=== PATIENT | female | born 1955 | race African-American/Black ===

== ENCOUNTER 2016-12-10 13:43 | Emergency (ER) | payer BC ==
[~2016-12-10 13:43] MED LIST: ALTA5 PO; AMARYL4 PO; CRESTOR10 PO; GLUCPH PO; HCTZ25B PO; INSNOV7030 SC; INSNOVR SC; K500 PO; LANTUS SC; LIPITOR20 PO; LISINOPRIL40 MG PO; LYRICA75 PO; NEUR300 PO; PREM9 PO; TOUJEO
[2016-12-10 14:14] LABS: BASOPHILS 0.2 %; BASOPHILS ABSOLUTE 0.01 10/3/uL (0.0-0.16); EOSINOPHILS 0.6 %; EOSINOPHILS ABSOLUTE 0.04 10/3/uL (0.0-0.53); HEMOGLOBIN 11.6 g/dL (12.0-16.0); IMMATURE GRANULOCYTES 0.2 %; IMMATURE GRANULOCYTES ABSOLUTE 0.01 10/3/uL (0.0-0.11); LYMPHOCYTES 29.4 %; LYMPHOCYTES ABSOLUTE 1.91 10/3/uL (0.67-4.30); MANUAL DIFF NO %; MEAN CORPUS HGB CONC 32.2 g/dL (32.0-36.0); MEAN CORPUSCULAR HEMOGLOB 26.4 pg (26.0-34.0); MEAN PLATELET VOLUME 9.4 fL (9.2-13.0); MONOCYTES 4.8 %; MONOCYTES ABSOLUTE 0.31 10/3/uL (0.21-1.20); NEUTROPHILS 64.8 %; NEUTROPHILS ABSOLUTE 4.22 10/3/uL (2.02-8.40); PLATELET COUNT 289 10/3/uL (150-400); RBC DISTRIBUTION WIDTH 13.4 % (12.0-16.0); RED CELL COUNT 4.39 10/6/uL (4.0-5.6); WHITE BLOOD CELLS 6.5 10/3/uL (4.5-10.5)
[2016-12-10 14:29] LABS: A/G RATIO 0.6 (0.7-1.9); ALBUMIN 2.5 G/DL (3.5-5.0); ALKALINE PHOSPHATASE 94 U/L (45-117); CALCIUM, SERUM 8.8 MG/DL (8.5-10.4); CHLORIDE, SERUM 112 MMOL/L (96-112); CO2 (CARBON DIOXIDE) 23 MMOL/L (24-34); GFR AFRICAN AMERICAN 37 ML/MIN (>=60); GFR NON AFRICAN AMERICAN 32 ML/MIN (>=60); GLOBULIN 4.2 G/DL (2.5-4.1); SGOT(AST) 18 U/L (5-40); SGPT(ALT) 17 U/L (5-65); SODIUM, SERUM 140 MMOL/L (135-148); TOTAL BILIRUBIN 0.5 MG/DL (0-1.2); TOTAL PROTEIN 6.7 G/DL (6.0-8.5)
[2016-12-10 14:30] LABS: BUN (BLOOD UREA NITROGEN) 18 MG/DL (6-23); GLUCOSE, SERUM 137 MG/DL (60-99); POTASSIUM, SERUM 4.2 MMOL/L (3.5-5.3)
[2017-02-07] MEDS ORDERED: NORV10 PO (10:15)
[2017-02-07] MEDS ORDERED: PRILOSEC40 MG (10:16)
[2017-02-07] MEDS ORDERED: COREG12 PO (10:16)
[2017-02-07] MEDS ORDERED: COZAAR100 MG PO (10:17)
[2017-02-07] MEDS ORDERED: ASAB PO (10:19)
[2017-02-07] MEDS ORDERED: TOUJEO (10:20)
[2017-02-07] MEDS ORDERED: TRULICITY0.75 MG/0. SQ (10:21)
== END 2016-12-10 20:59 | disposition left against medical advice (07) ==
LOC: ER 13:43
PROVIDERS: Emergency Medicine
DX: R07.9 Chest pain, unspecified (principal); Z53.21 Procedure and treatment not carried out due to patient leaving prior to being seen by health care provider
CPT/HCPCS: 80053; 81001; 83690; 85025; 93005